=== PATIENT | female | born 1950 | race Caucasian/White ===

== ENCOUNTER 2018-11-16 22:20 | Outpatient (REF) | payer MEDICARE, SELFPAY ==
[2018-11-16 22:49] LABS: Anion Gap 6.4 mmol/L (3-11); BUN 14 mg/dL (7-18); CO2 32.6 mmol/L (21.0-32.0); CREATININE 0.84 mg/dL (0.55-1.02); Calcium 9.1 mg/dL (8.5-10.1); Chloride 100 mmol/L (98-107); Glucose 115 mg/dL (70-100); Potassium 3.8 mmol/L (3.5-5.1); Sodium 139 mmol/L (136-145)
== END 2018-11-16 22:40 ==
LOC: NCHCN 22:20
PROVIDERS: PCP Family Medicine; Visit Provider Family Medicine
DX: I10 Essential (primary) hypertension (principal)
CPT/HCPCS: 80048

== ENCOUNTER 2019-09-14 14:14 | Outpatient (REF) | payer MEDICARE, SELFPAY ==
[2019-09-14 21:38] LABS: Anion Gap 10.1 mmol/L (3-11); BUN 15 mg/dL (7-18); CO2 26.9 mmol/L (21.0-32.0); CREATININE 0.71 mg/dL (0.55-1.02); Calculated LDL 121 mg/dL; Chloride 102 mmol/L (98-107); Cholesterol 200 mg/dL (<200); Glucose 106 mg/dL (74-106); HDL Cholesterol 56 mg/dL (40-60); Potassium 4.1 mmol/L (3.5-5.1); Sodium 139 mmol/L (136-145); Triglyceride 115 mg/dL (<150)
== END 2019-09-14 14:34 ==
LOC: NCHCN 14:14
PROVIDERS: PCP Family Medicine; Visit Provider Family Medicine
DX: E78.5 Hyperlipidemia, unspecified (principal); I10 Essential (primary) hypertension
CPT/HCPCS: 80048; 80061

== ENCOUNTER 2020-08-16 14:20 | Outpatient (REF) | payer MEDICARE, SELFPAY ==
[2020-08-19 06:11] LABS: Vitamin D 25 Total 16.3 ng/ml (30-100)
== END 2020-08-16 14:40 ==
LOC: NCHCN 14:20
PROVIDERS: PCP Family Medicine; Visit Provider Family Medicine
DX: M81.0 Age-related osteoporosis without current pathological fracture (principal)
CPT/HCPCS: 82306

== ENCOUNTER 2021-03-18 10:05 | Outpatient (REF) | payer MEDICARE, SELFPAY ==
[2021-03-18 15:33] LABS: ALT 25 U/L (14-59); AST 17 U/L (15-37); Albumin 3.8 g/dL (3.4-5.0); Alkaline Phosphatase 77 U/L (46-116); Anion Gap 8.5 mmol/L (3-11); BUN 16 mg/dL (7-18); Bilirubin, Total 0.7 mg/dL (0.2-1.0); CO2 27.5 mmol/L (21.0-32.0); CREATININE 0.7 mg/dL (0.55-1.02); Calcium 8.7 mg/dL (8.5-10.1); Calculated LDL 96 mg/dL (<100); Chloride 104 mmol/L (98-107); Cholesterol 174 mg/dL (<200); Glucose 95 mg/dL (74-106); HDL Cholesterol 56 mg/dL (40-60); Potassium 4.4 mmol/L (3.5-5.1); Sodium 140 mmol/L (136-145); Total Protein 6.7 g/dL (6.4-8.2); Triglyceride 111 mg/dL (<150)
[2021-03-20 05:18] LABS: Vitamin D 25 Total 21.1 ng/mL (30-100)
== END 2021-03-18 10:06 | disposition home or self-care (01) ==
LOC: NCHCN 10:05
PROVIDERS: PCP Family Medicine; Visit Provider Family Medicine
DX: E55.9 Vitamin D deficiency, unspecified (principal); I10 Essential (primary) hypertension; E78.5 Hyperlipidemia, unspecified; M81.0 Age-related osteoporosis without current pathological fracture
CPT/HCPCS: 80053; 80061; 82306

== ENCOUNTER 2022-03-17 20:10 | Outpatient (REF) | payer MEDICARE, SELFPAY ==
[2022-03-17 19:17] LABS: BUN 14 mg/dL (7-18); CREATININE 0.6 mg/dL (0.55-1.02); Calcium 8.4 mg/dL (8.5-10.1); Chloride 104 mmol/L (98-107); Glucose 109 mg/dL (74-106); Sodium 140 mmol/L (136-145)
[2022-03-17 20:06] LABS: Calculated LDL 115 mg/dL (<100); Cholesterol 201 mg/dL (<200); HDL Cholesterol 68 mg/dL (40-60); Triglyceride 92 mg/dL (<150)
[2022-03-19 05:33] LABS: Vitamin D 25 Total 21.8 ng/mL (30-100)
== END 2022-03-17 20:11 | disposition home or self-care (01) ==
LOC: NCHCN 20:10
PROVIDERS: PCP Family Medicine; Visit Provider Family Medicine
DX: I10 Essential (primary) hypertension (principal); E55.9 Vitamin D deficiency, unspecified; E78.5 Hyperlipidemia, unspecified
CPT/HCPCS: 80048; 80061; 82306

== ENCOUNTER 2023-05-25 10:33 | Outpatient (REF) | payer MEDICARE, SELFPAY ==
[2023-05-25 16:25] LABS: ALT 26 U/L (14-59); AST 17 U/L (15-37); Albumin 3.6 g/dL (3.4-5.0); Alkaline Phosphatase 69 U/L (46-116); Anion Gap 8.4 mmol/L (3-11); BUN 10 mg/dL (7-18); Bilirubin, Total 0.7 mg/dL (0.2-1.0); CO2 28.6 mmol/L (21.0-32.0); CREATININE 0.7 mg/dL (0.55-1.02); Calcium 8.8 mg/dL (8.5-10.1); Calculated LDL 93 mg/dL (<100); Chloride 105 mmol/L (98-107); Cholesterol 173 mg/dL (<200); Estimated GFR 92.41 (mL/min/1.73m2); Glucose 104 mg/dL (74-106); HDL Cholesterol 60 mg/dL (40-60); Potassium 4.5 mmol/L (3.5-5.1); Sodium 142 mmol/L (136-145); Total Protein 6.9 g/dL (6.4-8.2); Triglyceride 104 mg/dL (<150)
== END 2023-05-25 10:34 | disposition home or self-care (01) ==
LOC: NCHCN 10:33
PROVIDERS: PCP Family Medicine; Visit Provider Family Medicine
DX: I10 Essential (primary) hypertension (principal); E78.5 Hyperlipidemia, unspecified
CPT/HCPCS: 80053; 80061

== ENCOUNTER 2024-09-08 13:17 | Outpatient (REF) | payer MEDICARE, SELFPAY ==
--- OUTSIDE RECORDS SUMMARY | 2024-09-08 13:19 | XMS_ITS ---
Author Organization Unknown Address [address] [place] [address] [phone] Phone Care Team Providers Care Railroad Baggage Porter Name Role Phone SHAHNAZ Sprague Attending Unavailable STACEY VALARIE E Primary Unavailable Immunization Immunization Date Status Additional Notes Code Code System Tdap 08/17/2021 Completed 115 CVX Results XR WRIST LT 2V* - Completed: 09/24/2021 16:17 LOINC: LEFT WRIST - 3 VIEWS:Compari son is made with 09/03/21 and 08/20/21. There are stable healing fractures of the distal left radius and ulna. No change in alignment of the fracture is seen. No new fractures are present. The bones appear mildly osteopenic. There is mild soft tissue swelling of the wrist. Dictated by: MAICOL PUENTE MD Transcribed by: MURALI 09/24/2113:51 D Friday, September 24, 2021 9:58:47 AM [id number] Electronically Reviewed and Signed By: AYLIN PUENTE MD 09/24/21 13:55 Copy for: 185 HEALTH INFORMATION MGMT Social History Type Status Start Date End Date Code Code Syst em Smoking History Never smoker (Never Smoked) 208877051 SNOMED CT Sex Female Hospital Discharge Instructions Should you have any questions prior to discharge, please contact a member of your healthcare team. If you have left the hospital and have any questions, please contact your primary care physician. Reason For Referral No Data Found Problems Problem Start Date Resolved Date Status Code Code System HYPERTENSION 08/17/2021 resolved [id number] SNOMED -CT ELEVATED CHOLESTEROL 08/23/2021 resolved 48673277 SNOMED-CT OSTEOPOROSIS 08/23/2021 resolved 11129465 SNOMED -CT Allergies and Adverse Reactions Allergy Substance Reaction Severity Start Date Concern Status Co de Code System No Known Drug Allergies Active 883419332 SNOMED-CT Plan of Treatment MM SCREEN BILAT 06/09/2023 CT LOWER EXTREM W/O CONTRAST 08/26/2021 Encounters Encounter Diagnosis Start Date Code Code Sys tem Closed fracture of distal end of radius 09/24/2021 1 7732706 SNOMED-CT Personal Care Team Section Performer Name Performer Role Active Date Inactive Da te
--- OUTSIDE RECORDS SUMMARY | 2024-09-08 13:19 | XMS_ITS | Referral Summary ---
Author Organization [facility] Address [address] [place] [address] Care Team Providers Care Building Drafter Name Role Phone Unknown, Provider Primary Care Provider Unava ilable Social History Tobacco Use Types Packs/Day Years Used Date Smoking Tobacco: Never Assessed Interpersonal Safety Answer Date Record ed Physically Hurt Never 05/13/2020 Verbally Threaten Not on file 05/13/2020 Comments Unknown Sex and Gender Information Value Date Recorded Sex Assigned at Not on file Legal Sex Female 10:16 EST Gender Identity Not on file Sexual Orientation Not on file Plan of Treatment Not on file Care Teams Building Drafter Relationship Specialty Start Date End Date Unknown, Provider, PCP - General 11/01/17
--- OUTSIDE RECORDS SUMMARY | 2024-09-08 13:19 | XMS_ITS | Clinical Summary ---
Author Organization [facility] Address [address] [place] [address] Care Team Providers Care Environmental Director Name Role Phone Unknown, Provider Primary Care [...] Orientation Not on file Plan of Treatment Health Maintenance Due Date Last Done Comments Hepatitis C Screen 1950 Fall Risk Screening 2017 COVID-19 Vaccine (2023- season) 2024 RSV Immunization ( o r 60+ Years) (1 - 1-dose 75+ series) 2027 Care Teams Environmental Director Relationship Specialty Start Date End Date Unknown, Provider, PCP - General 11/01/17
--- OUTSIDE RECORDS SUMMARY | 2024-09-08 13:19 | XMS_ITS | Encounter Summary ---
Author Organization [facility] Address [address] [place] [address] Care Team Providers Care Spring Setter Name Role Phone Unknown, Provider Primary Care Provider Unava ilable Encounter Details Date Type Department Care Team (Late st Contact Info) Description 12/08/[address] [facility] - Main [place] [address] [place] [address] Anai Mcallister, IMPORT EXPORT COORDINATOR [address] [place] [address], [address] [place] [address] Social History Tobacco Use Types Packs/Day Years Used Date Smoking Tobacco: Never Assessed Comments Unknown Sex and Gender Information Value Date Recorded Sex Assigned at Not on file Legal Sex Female 10:16 EST Gender Identity Not on file Sexual Orientation Not on file documented as of this encounter Plan of Treatment Not on file documented as of this encounter Procedures Procedure Name Priority Date/Time Associated Diagnosis Comments SURGICAL PATHOLOGY Routine 12/08/2017 11 :28 EST documented in this encounter Results * SURGICAL PATHOLOGY (12/08/2017 11:28 EST) 12/08/2017 11:2 8 EST 12/09/2017 11:28 EST Narrative [facility] - 12/10/2017 10:31 EST PREOP PMB Procedure: ENDOMETRIAL BIOPSY Tissue Removed ENDOMETRIUM LMP: Prev.Abn Pap: 2002 ----- ------- Name: IGGY SANDOVAL ? : [birth year] ?Age/Sex: 69/F ?Unit#: [id number] ? Loc: AGO ? Status: REG POV ?? Reg Date: 12/08/17 ? Pt.Phone Number: ? ----- ------- Specimen: [id number] ?STATUS: SOUT ?Spec Date:12/08/17 ? Physician Copies: ?Anai Mcallister ? Tissues: A ?? Endometrium, biopsy ?Melony Bowen ? CPT: 11821 ?? Units: ??1 ?FINAL DIAGNOSIS ? ENDOMETRIUM, BIOPSY; ? -Detached inactive appearing endometrial epithelial fragments admixed with ? mucus, inflammatory exudate and a few fragments of unremarkable endocervical ? tissue ? -Findings are consistent with atrophic endometrium ? -No evident atypia, hyperplasia or malignancy ? GROSS DESCRIPTION ? Received in formalin labeled with the patient's name is an estimated 0.2 cc ? aggregate of eller-brown tissue fragments and mucus, filtered. es 1 NM ?? PREOP DX/CLINICAL HISTORY ?PMB Signed ____(signature on file)____ Janett Vick M.D. 12/10/17 ? By the signature above, the attending physician certifies that he/she has personally conducted a gross and/or microscopic examination of the described specimens and rendered or confirmed the above diagnosis. Test Performed by [facility], [address] [place] [address] Home Care Specialist: Oneyda Maldonado MD PHD ----- ------- us Anai Mcallister NP PATHOLOGY ORDERABLES Final Re sult [facility] documented in this encounter Visit Diagnoses Not on filedocumented in this encounter Care Teams Spring Setter Relationship Specialty Start Date End Date Unknown, Provider, PCP - General 11/01/17 documented as of this encounter
--- OUTSIDE RECORDS SUMMARY | 2024-09-08 13:19 | XMS_ITS | Encounter Summary ---
Author Organization [facility] Address [address] [place] [address] Care Team Providers Care Insole Taper Name Role Phone Unknown, Provider Primary Care Provider Unava ilable Encounter Details Date Type Department Care Team (Late st Contact Info) Description 10/25/2013 Historical Results Only [facility] - Main [place] [address] [place] [address] Harriet Stokes MD [address] [place] [address], [address] [place] [address] Social History Tobacco Use Types [...] Procedure Name Priority Date/Time Associated Diagnosis Comments PAP TEST Routine 10/25/2013 9:46 EST documented in this encounter Results * PAP TEST (10/25/2013 9:46 EST) 10/25/2013 9:46 EST 10/26/2013 9:46 EST Narrative [facility] - 11/02/2013 8:58 EST ----- ------- Name: JAIMEVIANCAIGGY ? : [birth year] ?Age/Sex: 69/F ?Unit#: [id number] ? Loc: AGO ? Status: REG POV ?? Reg Date: 10/25/13 ? Pt.Phone Number: ? ----- ------- Specimen: [id number] ? STATUS: SOUT ?Spec Date:10/25/13 ? Physician Copies: ?Harriet Stokes MD ?? Tissues: ? Cervical/Endo Pap ?Melony Bowen ? CPT: 62854 ?? Units: ??1 ----- ------- ? CYTOLOGY DIAGNOSIS SPECIMEN ADEQUACY: ?Satisfactory for evaluation. Transformation zone component present. GENERAL CATEGORIZATION: ?Negative for Intraepithelial Lesion or Malignancy DESCRIPTIVE DIAGNOSIS: ? Negative for Intraepithelial Lesion or Malignancy. ----- ------- ?HPV DNA RESULTS ?? 10/25/13 1101 HPV DNA RESULT ??NEG ? Negative for HPV types 16, 18, 31, 33, 35, 39, 45, 51, 52, ? 56, 58, 59, 66, 68. ? Method: Cervista HPV HR (High Risk) DNA test. ----- ------- ORDER QUERIES: LMP: MENOPAUS- JENN ? N Post ? N ??PREVIOUS ATYPICAL: N BCP/HRT? N Rad Rx? N IUD? N ??PAP PLUS HPV? Y ??REFLEX TO HR-HPV IF ASCUS N REFLEX TO HPV 16/18 IF HPV POS/PAP NEG Y HPV REGARDLESS? N ??RFLX HPV IF LSIL ?? Signed ____(signature on file)____ Oneyda Maldonado M.D. 11/02/13 By the signature above, the attending physician certifies that he/she has personally conducted a gross and/or microscopic examination of the described specimens and rendered or confirmed the above diagnosis. Test Performed by , [address] [address] Portable Machine Sander: Oneyda Maldonado MD PHD ----- ------- us Harriet Stokes MD PATHOLOGY ORDERABLES Final Re sult [facility] documented in this encounter Visit Diagnoses Not on filedocumented in this encounter Care Teams Insole Taper Relationship Specialty Start Date End Date Unknown, Provider, PCP - General 11/01/17 documented as of this encounter
--- OUTSIDE RECORDS SUMMARY | 2024-09-08 13:19 | XMS_ITS | Encounter Summary ---
Author Organization [facility] Address [address] [place] [address] Care Team Providers Care Facilities Flight Check Pilot Name Role Phone Unknown, Provider Primary Care Provider Unava ilable Encounter Details Date Type Department Care Team (Late st Contact Info) Description 12/29/2018 Historical Results Only [facility] [place] [facility] [place] [address] [place] [phone] Anai Mcallister, BIOMETRICS HEAD [address] [place] [address], [address] [place] [address] Social History Tobacco Use Types [...] Procedure Name Priority Date/Time Associated Diagnosis Comments HPV DNA DETECTION WITH GENOTYPING, PCR Routine 12/29/2018 16:21 EDT PAP TEST Routine 12/29/2018 documented in this encounter Results * HUMAN PAPILLOMAVIRUS (HPV) DETECTION-HIGH RISK TYPES (12/29/2018 16:21 EDT) HPV other High Risk types, PCR NEG 01/03/2019 14:51 EDT [facility] Comment: Negative for HPV types 16, 18, 31, 33, 35, 39, 45, 51, 52, 56, 58, 59, 66, 68. Method: Cervista HPV HR (High Risk) DNA test. 12/29/2018 16:2 1 EDT 12/29/2018 16:21 EDT us Anai Mcallister NP MICROBIOLOGY - GENERAL [facility] Final Result [facility] * PAP TEST (12/29/2018) 12/29/2018 12/29/2018 16: 17 EDT Narrative [facility] - 01/03/2019 15:02 EDT ----- ------- Name: IGGY CORREA ? : [birth year] ?Age/Sex: 69/F ?Unit#: [id number] ? Loc: AGO ? Status: REG POV ?? Reg Date: 12/29/18 ? Pt.Phone Number: ? ----- ------- Specimen: [id number] ? STATUS: SOUT ?Spec Date:12/29/18 ? Physician Copies: ?Anai Mcallister ? Tissues: ? Cervical/Endo Pap ?Melony Bowen ? CPT: 40421 ?? Units: ??1 ----- ------- ? CYTOLOGY DIAGNOSIS SPECIMEN ADEQUACY: ??Satisfactory for evaluation. Assessment of transformation zone not applicable (e.g. ??atrophy, vaginal sample, hysterectomy). GENERAL CATEGORIZATION: ?Negative for Intraepithelial Lesion or Malignancy DESCRIPTIVE DIAGNOSIS: ? Negative for Intraepithelial Lesion or Malignancy. ----- ------- ?HPV DNA RESULTS ? LABORATORY ?? Date ? Time Test ?Result ?? Flag ?Normal Range ?? 03/21/19 1621 HPV DNA RESULT ??NEG ? Negative for HPV types 16, 18, 31, 33, 35, 39, 45, 51, 52, ? 56, 58, 59, 66, 68. ? Method: Cervista HPV HR (High Risk) DNA test. ----- ------- ORDER QUERIES: LMP: 2002 ?- POST-MENOP ?? ? N Post ? N ??PREVIOUS ATYPICAL: N BCP/HRT? N Rad Rx? N IUD? N ??PAP PLUS HPV? Y ??REFLEX TO HR-HPV IF ASCUS Y REFLEX TO HPV 16/18 IF HPV POS/PAP NEG Y HPV REGARDLESS? Y ??RFLX HPV IF LSIL ?? Signed David Shukla CT(ASCP) 01/03/19 By the signature above, the attending physician certifies that he/she has personally conducted a gross and/or microscopic examination of the described specimens and rendered or confirmed the above diagnosis. Test Performed by [place] [facility], [address] [address] Poison Information Specialist: Oneyda Maldonado MD PHD ----- ------- us Anai Mcallister NP PATHOLOGY ORDERABLES Final Re sult Performing Organization Address City/State/[facility] Co de Phone Number [facility] documented in this encounter Visit Diagnoses Not on filedocumented in this encounter Care Teams Facilities Flight Check Pilot Relationship Specialty Start Date End Date Unknown, Provider, PCP - General 11/01/17 documented as of this encounter
--- OUTSIDE RECORDS SUMMARY | 2024-09-08 13:19 | XMS_ITS | Encounter Summary ---
Author Organization [facility] Address [address] [place] [address] Care Team Providers Care Franchise Sales Manager Name Role Phone Unknown, Provider Primary Care Provider Unava ilable Encounter Details Date Type Department Care Team (Latest Contact Info) Description 12/10/2017 11:45 EST - 12/10/2017 23:59 EST Hospital Encounter [facility] [address] [place] [address] Unknown, Provider, Discharge Disposition: Home or Self Care Social History Tobacco Use Types Packs/Day Years Used Date Smoking Tobacco: Never Assessed Comments Unknown Sex and Gender Information Value Date Recorded Sex Assigned at Not on file Legal Sex Female 10:16 EST Gender Identity Not on file Sexual Orientation Not on file documented as of this encounter Discharge Disposition Disposition Code Departure Means Destination Home or Self [facility] documented in this encounter Plan of Treatment Not on file documented as of this encounter Visit Diagnoses Not on filedocumented in this encounter Care Teams Franchise Sales Manager Relationship Specialty Start Date End Date Unknown, Provider, PCP - General 11/01/17 documented as of this encounter
--- OUTSIDE RECORDS SUMMARY | 2024-09-08 13:19 | XMS_ITS | Encounter Summary ---
Author Organization [facility] Address [address] [place] [address] Care Team Providers Care Sales Force Developer Name Role Phone Unknown, Provider Primary Care Provider Unava ilable Encounter Details Date Type Department Care Team (Late st Contact Info) Description 08/26/2011 Historical Results Only [facility] - Main [place] [address] [place] [address] Destiny Groves MD [address] [place] [address],[facility] [address] [place] [address] Social History Tobacco Use Types Packs/Day Years [...] Date/Time Associated Diagnosis Comments SURGICAL PATHOLOGY Routine 08/26/2011 documented in this encounter Results * SURGICAL PATHOLOGY (08/26/2011) 08/26/2011 08/26/2011 13: 47 EST Narrative [facility] - 08/27/2011 12:32 EST PREOP POSTMENOPAUSAL BLEEDING Procedure: ENDOMETRIAL TISSUE BIOPSY Tissue Removed ENDOMETRIAL TISSUE LMP: Prev.Abn Pap: MENOPAUSAL ----- ------- Name: IGGY CORREA ? : 54 ?Age/Sex: 69/F ?Unit#: [id number] ? Loc: AGO ? Status: REG POV ?? Reg Date: 08/26/11 ? Pt.Phone Number: ? ----- ------- Specimen: [id number] ? STATUS: SOUT ?Spec Date:08/26/11 ? Physician Copies: ?Destiny Groves ? Tissues: A ?? Female Reproductive System (ENDOMETRIUM) ? Sukhwinder Gonzalez MD ? CPT: 63006 ?? Units: ??1 ?FINAL DIAGNOSIS ? Endometrium, biopsy; ? -Fragments of inactive atrophic type endometrium. ?Fragments of benign endocervical glands. ? GROSS DESCRIPTION ? Received in formalin and designated endometrial currettings is a 0.025 cc ? volume of pink-eller fibromucosal tissue fragments and fragments of yellow- brown ? hemorrhagic blood. ??The specimen is entirely submitted. BT ?? PREOP DX/CLINICAL HISTORY ?POSTMENOPAUSAL BLEEDING Signed ____(signature on file)____ Jaylen Sommers M.D. 08/27/11 ?? By the signature above, the attending physician certifies that he/she has personally conducted a gross and/or microscopic examination of the described specimens and rendered or confirmed the above diagnosis. Test Performed by [facility], [address] [place] [address] Upper Leather Sorter: Oneyda Maldonado MD PHD ----- ------- us Destiny Groves MD PATHOLOGY ORDERABLES Final Res ult [facility] documented in this encounter Visit Diagnoses Not on filedocumented in this encounter Care Teams Sales Force Developer Relationship Specialty Start Date End Date Unknown, Provider, PCP - General 11/01/17 documented as of this encounter
--- OUTSIDE RECORDS SUMMARY | 2024-09-08 13:20 | XMS_ITS ---
Author Organization Unknown Address [address] [place] [address] [phone] Phone Care Team Providers Care Records Coordinator Name Role Phone STACEY Bryant Attending Unavailable Immunization Immunization Date Status Additional Notes Code Code System Tdap 08/17/2021 Completed 115 CVX Results MM SCREENING BILAT MAMMO W T SRIDEVI W CAD - Completed: 06/09/2023 09:12 LOINC: [facility] [place], [place] [address] PACS DUMPCART DRIVER REPORT Patient Name: VIANCA SANDOVALREHAN Jones MRN: Sex: : Age: [id number] F [id number] Account: Accession: Admit: StayType: [id number] 06/09/2023 O/P Ordered: Order ID: Submitted: Ordering Provider: 06/09/2023 08:52 [id number] KT VALARIE IBARRA Completed: Technologist: Resulted: 06/09/2023 09:12 MLL 06/09/2023 09:25 Study Description: MM SCREENING BILAT MAMMO W [place] W CAD Study Reason: SCREENING Comparisons: Comparison is made with prior examinations. FINDINGS: Mammography/Tomosynthesis: Masses/Architectural Distortion: None seen. Microcalcifictions: No suspicious pleomorphic-type are seen. Skin Thickening/Nipple Retraction: None. IMPRESSION: 1. No evidence of malignancy is noted. 2. Unless there is more urgent need, follow-up screening mammography is recommended, as per [employer] guidelines. BI-RADS Category 1: Negative BI_RADS Density Category B: Scattered areas of fibroglandular density Breast density Category C or D implies that the patient has dense breast tissue. Dense breast tissue can make it harder to find cancer on a mammogram. Dense breast tissue is also associated with an increased risk of breast cancer. This information about the result of the mammogram report was provided to the patient to raise their awareness. Use this report when you speak with the patient about their risks for breast cancer, which includes their family history. At that time, you may recommend additional screening tests (Ultrasound or MRI) as these tests may add significant information. A negative radiographic report should not delay biopsy if a dominant or clinically suspicious mass is present. Up to ten percent of cancers are not identified on mammography. A negative report may reinforce clinical impression. Adenosis and dense breasts may obscure an underlying neoplasm. False positive reports average 6 to 10%. Patient will receive a letter notifying them of these results. Report Digitally Signed by Andrews Monreal on 06/09/2023 09:25 AM EDT Social History Type Status Start Date End Date Code Code Syst em Smoking History Never smoker (Never Smoked) 489569130 SNOMED CT Sex Female Hospital Discharge Instructions Should you have any questions prior to discharge, please contact a member of your healthcare team. If you have left the hospital and have any questions, please contact your primary care physician. Reason For Referral No Data Found Problems Problem Start Date Resolved Date Status Code Code System HYPERTENSION 08/17/2021 resolved 84971393 SNOMED -CT ELEVATED CHOLESTEROL 08/23/2021 resolved 51460749 SNOMED-CT OSTEOPOROSIS 08/23/2021 resolved 56175146 SNOMED -CT Allergies and Adverse Reactions Allergy Substance Reaction Severity Start Date Concern Status Co de Code System No Known Drug Allergies Active 670285855 SNOMED-CT Plan of Treatment MM SCREEN BILAT 06/09/2023 CT LOWER EXTREM W/O CONTRAST 08/26/2021 Encounters Encounter Diagnosis Start Date Code Code Sys tem Encounter for screening mamm ogram for malignant neoplasm of breast 06/09/2023 SNOMED-CT Personal Care Team Section Performer Name Performer Role Active Date Inactive Da te
--- OUTSIDE RECORDS SUMMARY | 2024-09-08 13:20 | XMS_ITS ---
Author Organization Unknown Address [address] [place] [phone] Phone Care Team Providers Care Hearing Therapy Director Name Role Phone SHAHNAZ Sprague Attending Unavailable STACEY Bryant Primary Unavailable Immunization Immunization Date Status Additional Notes Code Code System Tdap 08/17/2021 Completed 115 CVX Results XR WRIST LT 2V* - Completed: 10/15/2021 16:35 LOINC: LEFT WRIST, 3 VIEWS: Comparison is 09/24/2021. There is stable healing fractures of the distal left radius and ulna. No change in alignment of the fractures is seen. No new fractures or dislocations are present. Dictated by: MAICOL PUENTE MD Transcribed by: LUIS ENRIQUE 10/15/21/13:59 [id number] Electronically Reviewed and Signed By: AYLIN PUENTE MD 10/21/21 10:05 Copy for: 185 HEALTH INFORMATION MGMT Social History Type Status Start Date End Date Code Code Syst em Smoking History Never smoker (Never Smoked) 505443589 SNOMED CT Sex Female Hospital Discharge Instructions Should you have any questions prior to discharge, please contact a member of your healthcare team. If you have left the hospital and have any questions, please contact your primary care physician. Reason For Referral No Data Found Problems Problem Start Date Resolved Date Status Code Code System HYPERTENSION 08/17/2021 resolved 43993509 SNOMED -CT ELEVATED CHOLESTEROL 08/23/2021 resolved 37843686 SNOMED-CT OSTEOPOROSIS 08/23/2021 resolved 07137687 SNOMED -CT Allergies and Adverse Reactions Allergy Substance Reaction Severity Start Date Concern Status Co de Code System No Known Drug Allergies Active 180150730 SNOMED-CT Plan of Treatment MM SCREEN BILAT 06/09/2023 CT LOWER EXTREM W/O CONTRAST 08/26/2021 Encounters Encounter Diagnosis Start Date Code Code Sys tem Closed fracture of distal end of radius 10/15/2021 1 2945870 SNOMED-CT Personal Care Team Section Performer Name Performer Role Active Date Inactive Da te
[2024-09-08 15:13] LABS: Anion Gap 6.4 mmol/L (3-11); BUN 11 mg/dL (7-18); CO2 30.6 mmol/L (21.0-32.0); CREATININE 0.8 mg/dL (0.55-1.02); Calcium 9.2 mg/dL (8.5-10.1); Calculated LDL 92 mg/dL (<100); Chloride 103 mmol/L (98-107); Cholesterol 198 mg/dL (<200); Estimated GFR 78.24 (mL/min/1.73m2); Glucose 107 mg/dL (74-106); HDL Cholesterol 72 mg/dL (40-60); Potassium 4.7 mmol/L (3.5-5.1); Sodium 140 mmol/L (136-145); Triglyceride 172 mg/dL (<150); Vitamin D 25 Total 16.2 ng/mL (30-100)
== END 2024-09-08 13:18 | disposition home or self-care (01) ==
LOC: NCHCN 13:17
PROVIDERS: PCP Family Medicine; Visit Provider Family Medicine
DX: I10 Essential (primary) hypertension (principal); E55.9 Vitamin D deficiency, unspecified
CPT/HCPCS: 80048; 80061; 82306

== ENCOUNTER 2025-03-20 14:59 | Outpatient (REF) | payer MEDICARE, SELFPAY ==
[2025-03-20 22:47] LABS: Vitamin D 25 Total 46 ng/mL (30-100)
== END 2025-03-20 15:00 | disposition home or self-care (01) ==
LOC: NCHCN 14:59
PROVIDERS: PCP Family Medicine; Visit Provider Family Medicine
DX: E55.9 Vitamin D deficiency, unspecified (principal)
CPT/HCPCS: 82306

== ENCOUNTER 2025-09-14 17:02 | Outpatient (REF) | payer MEDICARE, SELFPAY ==
[2025-09-14 21:30] LABS: Anion Gap 7.4 mmol/L (3-11); BUN 15 mg/dL (9-23); CO2 29.6 mmol/L (20.0-31.0); Calcium 9.2 mg/dL (8.3-10.6); Chloride 104 mmol/L (98-107); Cholesterol 173 mg/dL (<200); Glucose 166 mg/dL (74-106); HDL Cholesterol 61 mg/dL (>40); Potassium 4.4 mmol/L (3.5-5.1); Sodium 141 mmol/L (136-145)
[2025-09-14 21:31] LABS: Vitamin D 25 Total 39 ng/mL (30-100)
== END 2025-09-14 17:03 | disposition home or self-care (01) ==
LOC: NCHCN 17:02
PROVIDERS: PCP Family Medicine; Visit Provider Family Medicine
DX: E78.5 Hyperlipidemia, unspecified (principal); I10 Essential (primary) hypertension; E55.9 Vitamin D deficiency, unspecified
CPT/HCPCS: 80048; 80061; 82306

== ENCOUNTER 2025-09-21 16:07 | Outpatient (REF) | payer MEDICARE, SELFPAY ==
[2025-09-21 18:43] LABS: Glucose 121 mg/dL (74-106)
== END 2025-09-21 16:08 | disposition home or self-care (01) ==
LOC: NCHCN 16:07
PROVIDERS: PCP Family Medicine; Visit Provider Family Medicine
DX: R73.09 Other abnormal glucose (principal)
CPT/HCPCS: 82947